=== PATIENT | male | born 1970 | race Caucasian/White ===

== ENCOUNTER 2024-09-29 08:48 | Observation (INO) | payer BC, SELFPAY ==
[2024-09-29] MEDS ORDERED: Ondansetron PF 4 MG/2 ML Vial ONE (08:56)
[2024-09-29] MEDS ORDERED: CEFAZOLIN 2 GM VIAL ONE (08:56)
[2024-09-29] MEDS ORDERED: Morphine 4 MG/ML VIAL ONE (08:56)
[2024-09-29] MEDS ORDERED: Sodium Chloride 0.9% 100 ML ONE (08:56)
[2024-09-29] MEDS ORDERED: Boostrix 0.5 ML (Tdap) VIAL (>/=7 yrs of age) ONE (08:57)
[2024-09-29 09:12] LABS: #Basophils 0.04 10x3/uL (0.0-0.2); %Basophils 0.3 % (0.0-1.0); %Eosinophils 0.9 % (0.0-10.0); %Lymphocytes 15.2 % (21.0-51.0); %Monocytes 7.1 % (0.0-10.0); %Neutrophils 75.7 % (42.0-75.0); Hematocrit 41.5 % (42.0-52.0); Hemoglobin 14.6 g/dL (14.0-18.0); Mean Corpuscular HGB CONC 35.2 g/dL (32.0-36.0); Mean Corpuscular Hemoglobin 30.2 pg (27.0-31.0); Mean Corpuscular Volume 85.9 fL (78.0-98.0); Mean Platelet Volume 10.5 fL (7.4-10.4); Platelet Count 249 10x3/uL (130-400); RBC Distribution Width 12.1 % (11.5-14.5); Red Blood Cell (RBC) Count 4.83 mill/uL (4.70-6.10)
[2024-09-29 09:26] LABS: INR-International Normal Ratio 1.1; PTT 23.1 sec (22.9-36.1); Prothrombin Time 13.9 sec (12.0-14.7)
[2024-09-29 09:27] LABS: ALT (SGPT) 46 U/L (Less than 45); AST (SGOT) 39 U/L (11-34); Albumin 3.9 g/dL (3.1-4.5); Alkaline Phosphatase 82 U/L (40-110); Anion Gap 13 mmol/L (10-20); BUN (Urea Nitrogen) 13 mg/dL (8.4-25.7); Bilirubin, Total 0.7 mg/dL (0.3-1.2); Calc. Creatinine Clearance 0 mL/min (70-130); Calcium 9.4 mg/dL (7.8-10.44); Carbon Dioxide 23 mmol/L (22-29); Chloride 104 mmol/L (98-107); Estimated GFR 91; Globulin 3.6 g/dL (2.4-3.5); Glucose 300 mg/dL (70-105); Lipase 36 U/L (8-78); Potassium 3.6 mmol/L (3.5-5.1); Protein, Total 7.5 g/dL (6.0-8.3); Sodium 136 mmol/L (136-145)
[2024-09-29 09:33] LABS: Troponin I Less than 0.010 ng/mL (< 0.028)
[2024-09-29] MEDS ORDERED: Glucagon 1 MG/ML KIT IM PRN (12:09)
[2024-09-29] MEDS ORDERED: Dextrose 5% in Water 1,000 ML IV PRN (12:09)
[2024-09-29] MEDS ORDERED: Dextrose 50% Abboject 50 ML SYRINGE SLOW IVP PRN (12:09)
[2024-09-29] MEDS ORDERED: Ipratropium/Albuterol 3 ML NEB NEB PRN (12:15)
[2024-09-29] MEDS ORDERED: Ondansetron PF 4 MG/2 ML Vial IVP PRN (12:15)
[2024-09-29] MEDS ORDERED: Rib Fracture Protocol PO SCH (12:15)
[2024-09-29] MEDS ORDERED: Ondansetron ODT 4 MG TAB PO PRN (12:15)
[2024-09-29] MEDS ORDERED: hydrALAZINE 20 MG/ML VIAL SLOW IVP PRN (12:15)
[2024-09-29 13:11] LABS: Bacteria/HPF None Seen HPF (None Seen); Bilirubin Negative (Negative); Blood, Urine Negative (Negative); CAUTI Indications for Culture Pelvic or flank pain; Clarity Clear (Clear); Glucose, Urine (Dipstick) 500 mg/dL (Negative); Ketone, Urine Negative (Negative); Leukocyte Negative Leu/uL (Negative); Nitrite Negative (Negative); Protein, Urine (Dipstick) Negative (Neg-Trace); RBC/HPF 0-3 HPF (0-3); Specific Gravity, Urine 1.041 (1.002-1.036); Squamous Epithelial None Seen HPF (0-3); Urobilinogen Normal mg/dL (Less than 2); WBC/HPF 0-3 HPF (0-3); pH, Urine 5.5 (5.0-9.0)
[2024-09-29 13:19] LABS: Urine Culture Reflex No No
[2024-09-29 13:20] LABS: Amphetamine Not Detected (NotDetected); Barbiturates Screen Not Detected (NotDetected); Benzodiazepine Screen Not Detected (NotDetected); Cocaine Metabolite Screen Not Detected (NotDetected); Methadone Not Detected (NotDetected); Methamphetamine Not Detected (NotDetected); Opiate Screen Detected (NotDetected); Oxycodone Screen Not Detected (NotDetected); Phencyclidine (PCP) Not Detected (NotDetected); THC/Cannabinoid Screen Detected (NotDetected); Tricyclic Screen Not Detected (NotDetected)
[2024-09-29] MEDS ORDERED: Iopamidol-370 76% 500 ML MDV (1 ML CHARGE) ONE (14:38)
[2024-09-29 15:08] VITALS: BMI 31.4
[2024-09-29] MEDS: Cyclobenzaprine 10 MG TAB PO PRN (15:28)
[2024-09-29] MEDS: Gabapentin 300 MG CAP PO SCH (15:28)
[2024-09-29] MEDS: TETANUS, DIPHTHERIA TOX,ADULT (TDVAX) 0.5 ML VIAL IM ONE (15:33)
[2024-09-29] MEDS: Nicotine 14 MG PATCH TD SCH (15:34)
[2024-09-29] MEDS: Acetaminophen 500 MG TAB PO SCH (17:28)
[2024-09-29] MEDS: traMADol HCl 50 MG TAB PO SCH (17:28)
[2024-09-29] MEDS: Insulin Lispro 100 UNIT/ML 10 ML VIAL SC PRN (18:05)
[2024-09-29] MEDS: Ipratropium/Albuterol 3 ML NEB NEB SCH (18:34)
[2024-09-29] MEDS: Ibuprofen 200 MG TAB PO SCH (21:52)
[2024-09-30 06:08] LABS: #Basophils Less than 0.03 10x3/uL (0.0-0.2); %Basophils 0.2 % (0.0-1.0); %Lymphocytes 28.8 % (21.0-51.0); %Neutrophils 58.7 % (42.0-75.0); Hematocrit 42.7 % (42.0-52.0); Hemoglobin 14.5 g/dL (14.0-18.0); Mean Corpuscular Hemoglobin 30.1 pg (27.0-31.0); Mean Corpuscular Volume 88.6 fL (78.0-98.0); Mean Platelet Volume 10.5 fL (7.4-10.4); Platelet Count 231 10x3/uL (130-400); RBC Distribution Width 12.4 % (11.5-14.5); Red Blood Cell (RBC) Count 4.82 mill/uL (4.70-6.10)
[2024-09-30 06:39] LABS: ALT (SGPT) 43 U/L (Less than 45); AST (SGOT) 33 U/L (11-34); Albumin 3.8 g/dL (3.1-4.5); Alkaline Phosphatase 81 U/L (40-110); Anion Gap 13 mmol/L (10-20); BUN (Urea Nitrogen) 17 mg/dL (8.4-25.7); Calc. Creatinine Clearance 115 mL/min (70-130); Calcium 9.1 mg/dL (7.8-10.44); Carbon Dioxide 25 mmol/L (22-29); Chloride 102 mmol/L (98-107); Estimated GFR 84; Globulin 3.5 g/dL (2.4-3.5); Glucose 185 mg/dL (70-105); Potassium 3.5 mmol/L (3.5-5.1); Protein, Total 7.3 g/dL (6.0-8.3); Sodium 136 mmol/L (136-145)
[2024-09-30 08:27] VITALS: BP 124/87; TEMP 97.3
[2024-09-30] MEDS: Lidocaine 4% Patch TD SCH (08:49)
[2024-09-30] MEDS: Ketorolac Tromethamine 30 MG (1 mL) VIAL IVP SCH ×2 (09:51→12:00)
[2024-09-30] MEDS: Acetaminophen 500 MG TAB PO SCH (09:51)
[2024-09-30] MEDS ORDERED: Transdermal Patch Removal TOP SCH (21:00)
== END 2024-09-30 14:30 | disposition home or self-care (01) ==
LOC: ERS 08:48 → SURG B 13:28
PROVIDERS: ADMIT Specialist; ATTEND Specialist
DX: S22.42XA Multiple fractures of ribs, left side, initial encounter for closed fracture (principal); I10 Essential (primary) hypertension; E11.9 Type 2 diabetes mellitus without complications; F17.210 Nicotine dependence, cigarettes, uncomplicated; Z86.73 Personal history of transient ischemic attack (TIA), and cerebral infarction without residual deficits; Z79.899 Other long term (current) drug therapy; V29.408A Other motorcycle driver injured in collision with unspecified motor vehicles in traffic accident, initial encounter
CPT/HCPCS: 36415; 36416; 70450; 70486; 71045; 71260; 72125; 74177; 80053; 80306; 81001; 83690; 84484; 85025; 85610; 85730; 86850; 86900; 86901; 90471; 90715; 93005; 94640; 94760; 96374; 96375; G0378; G0390; J1815; J1885; J2270; J2405; J7620; Q9967